=== PATIENT | female | born 1950 | race Caucasian/White ===

== ENCOUNTER → 2018-12-01 15:46 | Outpatient (CLI) | payer MEDICARE, OTHER, SELFPAY ==
--- NOTE | 2018-12-01 | DI.MG.S_ITS ---
BILATERAL DIGITAL SCREENING MAMMOGRAM 3D/2D WITH CAD: 12/01/2018 CLINICAL: Routine screening. Comparison is made to exams dated: 02/04/2016 mammogram, 02/22/2014 mammogram, and 02/11/2012 mammogram - [facility]. The tissue of both breasts is heterogeneously dense. This may lower the sensitivity of mammography. Current study was also evaluated with a Computer Aided Detection (CAD) system. No significant masses, calcifications, or other findings are seen in either breast. There has been no significant interval change. IMPRESSION: NEGATIVE There is no mammographic evidence of malignancy. A 1 year screening mammogram is recommended. This exam was interpreted at Station ID: [id number]. NOTE: For mammograms, a report in lay terms will be sent to the patient. Approximately 15% of breast malignancies will not be visualized mammographically. In the management of a palpable breast mass, a negative mammogram must not discourage biopsy of a clinically suspicious lesion. Electronically Signed By: Lyssa guo/merlene:12/01/2018 18:36:26 letter sent: Normal Exam ACR BI-RADS Category 1: Negative 3341F
== END ==
PROVIDERS: Visit Provider Registered Nurse General Practice
DX: Z12.31 Encounter for screening mammogram for malignant neoplasm of breast (principal)
CPT/HCPCS: 77063; 77067

== ENCOUNTER → 2020-09-05 11:23 | Outpatient (CLI) | payer MEDICARE, OTHER, SELFPAY ==
--- NOTE | 2020-09-05 | DI.MG.S_ITS ---
BILATERAL DIGITAL SCREENING MAMMOGRAM 3D/2D WITH CAD: 09/05/2020 CLINICAL: Routine screening. Comparison is made to exams dated: 12/01/2018 mammogram, 02/04/2016 mammogram, and 02/22/2014 mammogram - [facility]. The tissue of both breasts is heterogeneously dense. This may lower the sensitivity of mammography. Current study was also evaluated with a Computer Aided Detection (CAD) system. No significant masses, calcifications, or other findings are seen in either breast. There has been no significant interval change. IMPRESSION: NEGATIVE There is no mammographic evidence of malignancy. A 1 year screening mammogram is recommended. This exam was interpreted at Station ID: [id number]. NOTE: For mammograms, a report in lay terms will be sent to the patient. Approximately 15% of breast malignancies will not be visualized mammographically. In the management of a palpable breast mass, a negative mammogram must not discourage biopsy of a clinically suspicious lesion. Electronically Signed By: Carrillo keenan/merlene:09/05/2020 12:29:06 letter sent: Normal Exam ACR BI-RADS Category 1: Negative 3341F
== END ==
PROVIDERS: PCP Registered Nurse General Practice; Referring Provider Registered Nurse General Practice; Visit Provider Registered Nurse General Practice
DX: Z12.31 Encounter for screening mammogram for malignant neoplasm of breast (principal)
CPT/HCPCS: 77063; 77067

== ENCOUNTER → 2022-01-07 13:33 | Outpatient (CLI) | payer MEDICARE, OTHER, SELFPAY ==
[2022-01-07 19:09] LABS: Add Manual Diff / Slide Review NO; Basophils Absolute Auto 100 /uL (0-100); Basophils Percent Auto 0.8 % (0-2); Eosinophils Absolute Auto 0 /uL (0-450); Eosinophils Percent Auto 0.2 % (2-4); Hematocrit 34.4 % (36-46); Hemoglobin 11.9 g/dL (12.0-16.0); Lymphocytes Absolute Auto 1600 /uL (1100-4500); Lymphocytes Percent Auto 23.3 % (25-40); Mean Corpuscular HGB Conc 34.5 % (30-36); Mean Corpuscular Hemoglobin 30.8 PG (26-34); Mean Corpuscular Volume 89.2 fL (80-100); Monocytes Absolute Auto 500 /uL (0-900); Monocytes Percent Auto 6.6 % (3-14); Neutrophils Absolute Auto 4900 /uL (1500-7000); Neutrophils Percent Auto 69.1 % (50-75); Platelet Count 202 X10^3/uL (150-400); Red Blood Cell Count 3.86 X10^6/uL (4.0-5.2); Red Cell Distribution Width 13.7 % (11.6-14.8); White Blood Cell Count 7.1 X10^3/uL (4.5-11.0)
[2022-01-07 19:39] LABS: Alanine Aminotransferase 13 IU/L (<35); Albumin 4.5 g/dL (3.5-5.0); Albumin Globulin Ratio 1.6 (1.0-2.8); Alkaline Phosphatase 78 U/L (38-126); Aspartate Aminotransferase 30 IU/L (14-36); BUN Creatinine Ratio 12.7 (6-22); Bilirubin Total 0.7 mg/dL (0.2-1.3); Blood Urea Nitrogen 8 mg/dL (7-17); Carbon Dioxide 24 mmol/L (22-32); Chloride 103 mmol/L (98-107); Cholesterol 239 mg/dL (140-199); Estimated Glomerular Filt Rate > 60 mL/min (>60); Globulin 2.8 g/dL (1.7-4.1); Glucose 95 mg/dL (80-110); HDL Cholesterol 86 mg/dL (40-60); HEMOLYSIS < 15 (0-50); LDL Cholesterol Calculated 141 mg/dL (<100); Potassium 3.8 mmol/L (3.4-5.1); Sodium 140 mmol/L (137-145); Total Protein 7.3 g/dL (6.3-8.2); Triglycerides 61 mg/dL (35-150)
== END ==
PROVIDERS: PCP Registered Nurse General Practice; Visit Provider Physician Assistant
DX: Z86.010 Personal history of colon polyps (principal); Z13.220 Encounter for screening for lipoid disorders; R19.00 Intra-abdominal and pelvic swelling, mass and lump, unspecified site
CPT/HCPCS: 80053; 80061; 85025

== ENCOUNTER → 2022-01-09 09:35 | Outpatient (CLI) | payer MEDICARE, OTHER, SELFPAY ==
--- NOTE | 2022-01-09 09:37 | DI.CT.S_ITS ---
PROCEDURE: CT ABDOMEN PELVIS W CON INDICATIONS: large softball size mass LLQ TECHNIQUE: After the administration of oral and IV contrast, axial sections were acquired from the lung bases to the pubic symphysis. Coronal and sagittal reformats were performed. For radiation dose reduction, the following was used: automated exposure control, adjustment of mA and/or kV according to patient size. COMPARISON: None. FINDINGS: Image quality: Excellent. Lung bases: Unremarkable. Heart: No significant findings. ABDOMEN: Liver: Unremarkable. Gallbladder: Unremarkable. Biliary ducts: Unremarkable. Pancreas: Unremarkable. Spleen: Unremarkable. Adrenal Glands: Unremarkable. Kidneys and Ureters: Unremarkable. Stomach and Bowel: Stomach, small bowel loops, and colon are unremarkable. Peritoneum: No abnormal intraperitoneal fluid. No free air. Ventral Wall: No hernia. Abdominal Nodes: No retroperitoneal or mesenteric adenopathy by size criteria. Vessels: Aorta and inferior vena cava are normal in size. PELVIS: Pelvic Organs: There is a large pelvic mass with both cystic and solid component in mid pelvis measuring 11.9 cm AP, 15.5 cm transverse and 11.3 cm cephalocaudal. There is a small amount of ascites. Uterus is small. Ovaries are not well visualized. A 1.8 cm soft tissue nodule in the right pelvic sidewall could be the right ovary or a omental implant. Prominent pelvic veins are noted bilaterally. Bladder: Unremarkable. Pelvic Nodes: There is a 1.2 cm soft tissue nodule in the right pelvic sidewall, concerning for metastasis, either a metastatic lymph node or peritoneal implant. Miscellaneous: No inguinal hernias are seen. Bones: Scoliosis. [id number] degenerative disc and facet disease in lumbar spine. IMPRESSION: 1. A large complex solid and cystic mass in pelvis measuring 11.9 x 15.5 x 11.3 cm, occupying the entire pelvis and lower abdomen. It is most likely ovarian in origin and highly suspicious for malignant ovarian neoplasm such as a cystadenocarcinoma. Because of its large size and mass effect to adjacent pelvic organs, ovaries are not definitively identified. 2. A small amount of ascites. 3. Dilated pelvic veins bilaterally are likely secondary to mass effect from the large pelvic mass. 4. A 1.2 cm soft tissue nodule in the right pelvic sidewall suspicious for metastasis. Dictated by: Francisco See M.D. on 01/09/2022 at 11:54 Approved by: Francisco See M.D. on 01/09/2022 at 12:14
== END ==
PROVIDERS: PCP Physician Assistant; Referring Provider Physician Assistant; Visit Provider Physician Assistant
DX: R19.09 Other intra-abdominal and pelvic swelling, mass and lump (principal); R18.8 Other ascites; I86.2 Pelvic varices; M51.36 Other intervertebral disc degeneration, lumbar region; M47.816 Spondylosis without myelopathy or radiculopathy, lumbar region
CPT/HCPCS: 74177; Q9967

== ENCOUNTER → 2022-02-27 19:37 | Outpatient (CLI) | payer MEDICARE, OTHER, SELFPAY ==
--- NOTE | 2022-02-27 | DI.RAD.S_ITS ---
PROCEDURE: XR ABDOMEN MIN 2V INDICATIONS: PELVIC MASS IN FEMALE, POST ABD SURGICAL PAIN TECHNIQUE: 2 views of the abdomen were acquired. COMPARISON: [facility], CT, CT ABDOMEN PELVIS W CON, 01/09/2022, 11:09. FINDINGS: Surgical changes and devices: None. Bowel: No pneumoperitoneum. The bowel gas pattern is normal. Soft tissues: No mass identified. No suspicious abdominal calcifications. Lung bases are clear. Bones: No suspicious bony abnormalities. Scoliosis. Multilevel DDD. IMPRESSION: Nonobstructive bowel gas pattern. If clinically indicated consider CT abdomen pelvis with IV contrast for further evaluation. Dictated by: Montrell Feliz M.D. on 02/28/2022 at 9:48 Approved by: Montrell Feliz M.D. on 02/28/2022 at 9:50
== END ==
PROVIDERS: PCP Physician Assistant; Referring Provider Obstetrics & Gynecology Gynecologic Oncology; Visit Provider Obstetrics & Gynecology Gynecologic Oncology
DX: R19.09 Other intra-abdominal and pelvic swelling, mass and lump (principal)
CPT/HCPCS: 36415; 74019; 80053; 85025

== ENCOUNTER → 2022-02-27 20:16 | Outpatient (ROUT) | payer MEDICARE, OTHER, SELFPAY ==
[2022-02-27 20:40] LABS: Alanine Aminotransferase 14 IU/L (<35); Albumin 3.5 g/dL (3.5-5.0); Alkaline Phosphatase 89 U/L (38-126); Aspartate Aminotransferase 20 IU/L (14-36); BUN Creatinine Ratio 11.9 (6-22); Bilirubin Total 0.7 mg/dL (0.2-1.3); Blood Urea Nitrogen 8 mg/dL (7-17); Calcium 8.5 mg/dL (8.4-10.2); Carbon Dioxide 27 mmol/L (22-32); Chloride 97 mmol/L (98-107); Estimated Glomerular Filt Rate > 60 mL/min (>60); Globulin 3.4 g/dL (1.7-4.1); Glucose 104 mg/dL (80-110); HEMOLYSIS < 15 (0-50); Sodium 131 mmol/L (137-145); Total Protein 6.9 g/dL (6.3-8.2)
[2022-02-27 20:44] LABS: Add Manual Diff / Slide Review NO; Basophils Absolute Auto 100 /uL (0-100); Basophils Percent Auto 0.8 % (0-2); Eosinophils Absolute Auto 0 /uL (0-450); Eosinophils Percent Auto 0.2 % (2-4); Hematocrit 33.3 % (36-46); Hemoglobin 11.3 g/dL (12.0-16.0); Lymphocytes Absolute Auto 1300 /uL (1100-4500); Lymphocytes Percent Auto 13.6 % (25-40); Mean Corpuscular Volume 88.1 fL (80-100); Monocytes Absolute Auto 1000 /uL (0-900); Monocytes Percent Auto 9.8 % (3-14); Neutrophils Absolute Auto 7500 /uL (1500-7000); Neutrophils Percent Auto 75.6 % (50-75); Platelet Count 440 X10^3/uL (150-400); Red Blood Cell Count 3.78 X10^6/uL (4.0-5.2); Red Cell Distribution Width 13.1 % (11.6-14.8); White Blood Cell Count 9.9 X10^3/uL (4.5-11.0)
== END ==
PROVIDERS: PCP Physician Assistant; Visit Provider Obstetrics & Gynecology Gynecologic Oncology
DX: R19.00 Intra-abdominal and pelvic swelling, mass and lump, unspecified site (principal); R19.09 Other intra-abdominal and pelvic swelling, mass and lump
CPT/HCPCS: 36415; 80053; 85025

== ENCOUNTER 2022-03-08 19:06 | Emergency (ER) | payer MEDICARE, OTHER, SELFPAY ==
[2022-03-08 19:20] VITALS: BP 149/76; PULSE 96; RESP 20; TEMP 36.8; O2SAT 100
--- NOTE | 2022-03-08 19:55 | ED_ITS ---
HPI - Abdominal Pain General Chief Complaint: Abdominal Pain Stated Complaint: ABD pain and inflamation post op 5 wks Time Seen by Provider: 03/08/22 19:28 Source: patient Mode of arrival: Ambulatory History of Present Illness HPI narrative: This 71-year-old woman comes to the ER today because of abdominal symptoms related to a recent procedure. In January she noticed a mass in her abdomen and saw her primary care doctor in the [facility] and then was referred to an oncology group in [facility] where she underwent an ovarian mass removal on February 03. 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 She felt very poorly postoperatively with abdominal pain, distension, marked gas and bloating and pain and difficulty with eating and sleeping. She was hospitalized subsequently on February 28 and underwent paracentesis on that day and then again on the . She was treated empirically for spontaneous bacterial peritonitis but ultimately cultures were negative and antibiotics were discontinued. She left the hospital feeling quite a bit better on March 05. She felt reasonably well that day and the next day with began to notice on the 03 06 erythema around the incision site that had not been present previously. She feels ill with some chills. She feels nausea but no vomiting. She feels a lot of gas and bloating. Her abdomen is not distended as it was when she required paracentesis previously she has testing concerned about this. They also have the additional stressors of leaving the area form of moved organ coming up imminently. She has no significant primary care provider. I am told that her case went to tumor board yesterday but they did not know the results of that yet. Related Data Previous Rx's Medication Instructions Recorded ascorbic acid (vitamin C) 500 mg 500 mg PO DAILY #90 tabs 01/08/22 tablet ferrous sulfate 325 mg (65 mg 325 mg PO DAILY #90 tabs 01/08/22 iron) tablet,delayed release sulfamethoxazole 800 1 tab PO BID #20 tabs 03/08/22 mg-trimethoprim 160 mg tablet (Bactrim DS) Allergies Allergy/AdvReac Type Severity Reaction Status Date / Time No Known Allergies Allergy Uncoded 03/08/22 19:28 Review of Systems Review of Systems Narrative: Complete review of systems is negative other than as noted above. Patient History Social History Smoking Status: Never smoker Smoking Status: Never smoker alcohol intake frequency: 0-2 drinks per day Substance Use Type: does not use Exam Narrative Exam Narrative: GENERAL: Alert, cooperative and in no distress. HEAD: Atraumatic. Normocephalic. EYES: Sclera are clear without icterus. Extraocular movements are full. ENT: No rhinorrhea. Oropharynx is moist. Mouth exam is benign. NECK: Supple. Full range of motion. CARDIOVASCULAR: Normal rate and rhythm without murmur gallop or rub. RESPIRATORY: Clear to auscultation. Breath sounds equal bilaterally. No wheezes, rales, or rhonchi. GASTROINTESTINAL: Abdomen soft, non-tender, nondistended. Below the umbilicus there is a patch of erythema and warmth and tenderness without fluctuance. This area is about 10 x 10 cm. There is no draining wound. The wound edges are intact. EXTREMITIES: No edema, full range of motion. No obvious trauma. BACK: Normal inspection, no CVA tenderness. NEURO: Nonfocal examination, normal speech, normal gait. SKIN: No rash or erythema of visible areas PSYCH: Normally oriented. Normal range of affect. Appropriate behavior Initial Vital Signs Initial Vital Signs: Vital Signs Temperature 98.2 F 03/08/22 19:20 Pulse Rate 96 H 03/08/22 19:20 Respiratory Rate 20 03/08/22 19:20 Blood Pressure 149/76 H 03/08/22 19:20 Pulse Oximetry 100 03/08/22 19:20 Oxygen Delivery Method 03/08/22 19:20 Course Orders Ordered: ED Orders 03/08/22 20:12 UA dip and micro [Urinalysis and Microscopic] Stat 03/08/22 20:35 CBC Auto Diff [Complete Blood Count AUTO DIFF] Stat CMP [Comprehensive Metabolic Panel] Stat Lactate (Lactic Acid) Stat Ondansetron HCl (Ondansetron 4 Mg/2 Ml Inj) 4 mg IV Q2HR PRN PRN Reason: Nausea And Vomiting Last Admin: 03/08/22 20:21 Dose: 4 mg Documented By: MORTEZA Discontinued Medications Acetaminophen (Acetaminophen 325 Mg Tablet) 975 mg PO NOW ONE Stop: 03/08/22 20:12 Last Admin: 03/08/22 20:21 Dose: 975 mg Documented By: MORTEZA Sodium Chloride (Normal Saline 0.9%) 1,000 mls @ 1,000 mls/hr IV BOLUS ONE Stop: 03/08/22 21:10 Last Admin: 03/08/22 20:20 Dose: 1,000 mls/hr Documented By: MORTEZA Ketorolac Tromethamine (Ketorolac 30 Mg/Ml Vial) 15 mg IV NOW ONE Stop: 03/08/22 20:12 Last Admin: 03/08/22 20:21 Dose: 15 mg Documented By: MORTEZA Trimethoprim/Sulfamethoxazole (Trimeth/Sulfa 160/800 (Ds) Tablet) 1 tab PO NOW ONE Stop: 03/08/22 22:02 Vital Signs Vital signs: Vital Signs - 8 hr 03/08/22 19:20 Temperature 98.2 F Pulse Rate 96 H Respiratory Rate 20 Blood Pressure 149/76 H Pulse Oximetry 100 Oxygen Delivery Method Room Air MDM - Abdominal Pain Lab Data Result diagrams: 03/08/22 20:35 03/08/22 20:35 Labs: Lab Results 03/08/22 03/08/22 03/08/22 Range/Units 20:35 20:35 20:35 WBC 10.8 (4.5-11.0) X10^3/uL RBC 3.27 L (4.0-5.2) X10^6/uL Hgb 9.8 L (12.0-16.0) g/dL Hct 28.4 L (36-46) % MCV 86.6 (80-100) fL MCH 29.9 (26-34) PG MCHC 34.5 (30-36) % RDW 13.4 (11.6-14.8) % Plt Count 419 H (150-400) X10^3/uL Neut % (Auto) Not Reportable Lymph % (Auto) Not Reportable [place] % (Auto) Not Reportable Eos % (Auto) Not Reportable Baso % (Auto) Not Reportable Lymph # (Auto) Not Reportable [place] # (Auto) Not Reportable Baso # (Auto) Not Reportable Total Counted 100 Seg Neutrophils % 80.0 H (38-70) % Lymphocytes % (Manual) 9.0 L (25-45) % Monocytes % (Manual) 9.0 (2-11) % Eosinophils % (Manual) 2.0 (2-4) % Neutrophils # (Manual) 8640 H (4117-4710) /uL RBC Morphology Normal morphology Sodium 133 L (137-145) mmol/L Potassium 4.5 (3.4-5.1) mmol/L Chloride 96 L (98-107) mmol/L Carbon Dioxide 30 (22-32) mmol/L BUN 14 (7-17) mg/dL Creatinine 0.46 L (0.52-1.04) mg/dL Estimated GFR > 60 (>60) mL/min BUN/Creatinine Ratio 30.4 H (6-22) Glucose 107 (80-110) mg/dL Lactate 1.0 (0.7-2.1) mmol/L Calcium 8.0 L (8.4-10.2) mg/dL Total Bilirubin 0.3 (0.2-1.3) mg/dL AST 30 (14-36) IU/L ALT 22 (<35) IU/L Alkaline Phosphatase 60 (38-126) U/L Total Protein 6.1 L (6.3-8.2) g/dL Albumin 3.0 L (3.5-5.0) g/dL Globulin 3.1 (1.7-4.1) g/dL Albumin/Globulin Ratio 1.0 (1.0-2.8) MDM Narrative Medical decision making narrative: I really think that the symptoms today are related to the local cellulitis and not directly related to the intra-abdominal problems that she has been having. She has reassuring vital signs and reassuring laboratory data and benign exam other than the obvious cellulitis on the abdominal wall. She has follow-up with the residency clinic on which I think should be adequate. Discharge Plan Departure Patient Disposition: Home Clinical Impression: Cellulitis Qualifiers: Site of cellulitis: trunk Activity Restrictions/Additional Instructions: Thank you for trusting us with your care here today. You have cellulitis on the skin of your abdomen. This sometimes occurs after an incision in the skin. I do not think it is directly related to the swelling in your abdomen or the tumor that was removed. For treatment of this I recommend trimethoprim sulfa twice daily for 10 days. Follow up at the clinic on as previously arranged. It is okay to use Tylenol or ibuprofen or the stronger pain medication or the anti nausea medicine as needed. Make sure the your keeping herself well hydrated. If the redness is getting dramatically worse or if it is associated with dramatically worse pain or vomiting or high fever, return to the emergency department for evaluation to see if you need IV antibiotics. This would be unusual. You need to follow-up on the tumor board assessment and the cytology report when you see the resident doctor on . Prescriptions: New sulfamethoxazole-trimethoprim [Bactrim DS] 800-160 mg tablet 1 tab PO BID Qty: 20 0RF No Action ferrous sulfate 325 mg (65 mg iron) tablet,delayed release (DR/EC) 325 mg PO DAILY Qty: 90 0RF Rx Instructions: Take with Vitamin C ascorbic acid (vitamin C) 500 mg tablet 500 mg PO DAILY Qty: 90 0RF Rx Instructions: Take with iron Referrals: Camilla Pederson PA-C [Primary Care Provider] -
[2022-03-08] MEDS: SODIUM CHLORIDE 0.9% 1,000 ML 1000 ML IV (20:20)
[2022-03-08] MEDS: KETOROLAC 30 MG/ML VIAL 15 MG IV (20:21)
[2022-03-08] MEDS: ACETAMINOPHEN 325 MG TABLET 975 MG PO (20:21)
[2022-03-08] MEDS: ONDANSETRON 4 MG/2 ML INJ IV (20:21)
[2022-03-08 20:47] LABS: Hemoglobin 9.8 g/dL (12.0-16.0)
[2022-03-08 20:49] LABS: Hematocrit 28.4 % (36-46); Mean Corpuscular HGB Conc 34.5 % (30-36); Mean Corpuscular Hemoglobin 29.9 PG (26-34); Mean Corpuscular Volume 86.6 fL (80-100); Platelet Count 419 X10^3/uL (150-400); Red Blood Cell Count 3.27 X10^6/uL (4.0-5.2); Red Cell Distribution Width 13.4 % (11.6-14.8); White Blood Cell Count 10.8 X10^3/uL (4.5-11.0)
[2022-03-08 20:51] LABS: Add Manual Diff / Slide Review YES
[2022-03-08 20:56] LABS: Alanine Aminotransferase 22 IU/L (<35); BUN Creatinine Ratio 30.4 (6-22); Bilirubin Total 0.3 mg/dL (0.2-1.3); Blood Urea Nitrogen 14 mg/dL (7-17); Carbon Dioxide 30 mmol/L (22-32); Chloride 96 mmol/L (98-107); Estimated Glomerular Filt Rate > 60 mL/min (>60); Globulin 3.1 g/dL (1.7-4.1); Glucose 107 mg/dL (80-110); Sodium 133 mmol/L (137-145); Total Protein 6.1 g/dL (6.3-8.2)
[2022-03-08 20:58] LABS: HEMOLYSIS 63 (0-50); Potassium 4.5 mmol/L (3.4-5.1)
[2022-03-08 20:59] LABS: Aspartate Aminotransferase 30 IU/L (14-36)
[2022-03-08 21:08] LABS: Alkaline Phosphatase 60 U/L (38-126)
[2022-03-08 21:19] LABS: Neutrophils Absolute Manual 8640 /uL (3000-5900); RBC Morphology Normal Morphology; Total Cells Counted 100
[2022-03-08] MEDS: TRIMETH/SULFA 160/800 (DS) TABLET 1 TAB PO (22:09)
== END 2022-03-08 22:19 | disposition home or self-care (01) ==
PROVIDERS: Emergency Provider Family Medicine Addiction Medicine; PCP Physician Assistant
DX: L03.319 Cellulitis of trunk, unspecified (principal)
CPT/HCPCS: 80053; 83605; 85007; 85025; 96361; 96374; 96375; 99284; J1885; J2405

== ENCOUNTER → 2022-03-15 09:09 | Outpatient (CLI) | payer MEDICARE, OTHER, SELFPAY ==
--- NOTE | 2022-03-15 09:11 | DI.CT.S_ITS ---
PROCEDURE: CT ABDOMEN PELVIS W CON INDICATIONS: Cellulitis/Abdominal distension (gaseous) TECHNIQUE: After the administration of oral and IV contrast, axial sections were acquired from the lung bases to the pubic symphysis. Coronal and sagittal reformats were performed. For radiation dose reduction, the following was used: automated exposure control, adjustment of mA and/or kV according to patient size. COMPARISON: None. FINDINGS: Image quality: Excellent. Lung bases: Unremarkable. Heart: No significant findings. ABDOMEN: Liver: Unremarkable. Gallbladder: Unremarkable. Biliary ducts: Unremarkable. Pancreas: Unremarkable. Spleen: Unremarkable. Adrenal Glands: Unremarkable. Kidneys and Ureters: Unremarkable. Stomach and Bowel: Several small bowel loops are seen anterior to the liver, which is a new finding. No dilated loops of small bowel are seen. No significant colonic thickening can be seen. The stomach is relatively decompressed. Peritoneum: No abnormal intraperitoneal fluid. No free air. Ventral Wall: No hernia. Generalized body wall edema is seen, yet without focal cellulitis identified. Abdominal Nodes: No retroperitoneal or mesenteric adenopathy by size criteria. Vessels: Aorta and inferior vena cava are normal in size. Atherosclerotic calcification is noted. PELVIS: Pelvic Organs: The previously seen pelvic mass is no longer seen. No uterus is seen. No adnexal masses are seen. Bladder: Unremarkable. Pelvic Nodes: No enlarged lymph nodes. Miscellaneous: No inguinal hernias are seen. Bones: Ksvo-gh-ggugyxtn levoconvex lumbar scoliosis is seen. Focal lumbar spine degenerative change is seen, with milder degenerative changes seen elsewhere. IMPRESSION: Interval resection of the previously seen pelvic mass. No pelvic masses are now seen. No dilated loops of bowel are seen. Note is made small bowel loops anterior to the liver, which is a new finding. Generalized body wall edema is seen, without focal soft tissues cellulitis identified. Incidental note is made of: [id number]-[id number] levoconvex lumbar scoliosis Focal lower lumbar spine degenerative change Dictated by: Maikol Johnson M.D. on 03/15/2022 at 10:09 Approved by: Maikol Johnson M.D. on 03/15/2022 at 10:14
== END ==
PROVIDERS: PCP Physician Assistant; Referring Provider Student in an Organized Health Care Education/Training Program; Visit Provider Student in an Organized Health Care Education/Training Program
DX: L03.90 Cellulitis, unspecified (principal); R14.0 Abdominal distension (gaseous); M41.86 Other forms of scoliosis, lumbar region; M47.816 Spondylosis without myelopathy or radiculopathy, lumbar region
CPT/HCPCS: 74177; Q9967

== ENCOUNTER → 2022-05-19 09:11 | Outpatient (CLI) | payer MEDICARE, OTHER, SELFPAY ==
--- NOTE | 2022-05-19 | DI.MG.S_ITS ---
BILATERAL DIGITAL SCREENING MAMMOGRAM 3D/2D WITH CAD: 05/19/2022 CLINICAL: Routine screening. Comparison is made to exams dated: 09/05/2020 mammogram, 02/04/2016 mammogram, and 12/01/2018 mammogram - [facility]. Both breasts are heterogeneously dense, which may obscure small masses (category c / 51-75% glandular tissue). Current study was also evaluated with a Computer Aided Detection (CAD) system. No significant masses, calcifications, or other findings are seen in either breast. There has been no significant interval change. IMPRESSION: NEGATIVE There is no mammographic evidence of malignancy. A 1 year screening mammogram is recommended. Based on the Tyrer Cuzick model (a risk assessment model) the patient's lifetime risk is 7.1% and her 10 year risk is 4.2%. According to the ACR, ACS, and NCCN guidelines, an annual breast MRI exam along with mammogram is recommended if the patient's lifetime risk is 20% or greater. This exam was interpreted at Station ID: [id number]. NOTE: For mammograms, a report in lay terms will be sent to the patient. Approximately 15% of breast malignancies will not be visualized mammographically. In the management of a palpable breast mass, a negative mammogram must not discourage biopsy of a clinically suspicious lesion. Electronically Signed By: Blake Young M.D., jr/merlene:05/19/2022 14:17:30 letter sent: Normal Exam ACR BI-RADS Category 1: Negative 3341F
== END ==
PROVIDERS: PCP Physician Assistant; Referring Provider Physician Assistant; Visit Provider Physician Assistant
DX: Z12.31 Encounter for screening mammogram for malignant neoplasm of breast (principal)
CPT/HCPCS: 77063; 77067